=== PATIENT | female | born 1955 | race Caucasian/White ===

== ENCOUNTER 2024-01-20 21:10 | Inpatient (IN) | payer MEDICARE, OTHER, SELFPAY ==
--- NOTE | 2024-01-17 16:09 | PTCARENOTE ---
Patients 5/2 hgb 8.7, Dr. Gudino notified
[2024-01-20] VITALS (12 sets, daily range): BP systolic 99–126; BP diastolic 44–64; BMI 26.3
[2024-01-20] MEDS: NORMOSOL-R 1000 IV ×2 (14:11→20:48)
[2024-01-20 20:23] LABS: Hematocrit 29.9 % (37.0-47.0); Hemoglobin 10.1 g/dL (12.0-16.0)
--- NOTE | 2024-01-20 21:30 | PTCARENOTE ---
Pt transferred from PACU with left humerus fracture. Pt has swelling and bruising on left arm. Pt AAOX3, able to make needs known, VSS. Pt oriented to unit, call leong within reach. Neurovascular checks Q4. Will continue with current plan.
[2024-01-20] MEDS: LIPITOR 20 MG PO (21:52)
[2024-01-20] MEDS: ASPIRIN 325 MG PO (21:53)
[2024-01-20] MEDS: COLACE 100 MG PO (21:53)
[2024-01-20] MEDS: TYLENOL 650 MG PO (21:53)
[2024-01-20] MEDS: ANCEF 5 IV (23:12)
[2024-01-21] VITALS (7 sets, daily range): BP systolic 99–114; BP diastolic 49–65
[2024-01-21] MEDS: NORMOSOL-R 1000 IV (04:59)
[2024-01-21 06:34] LABS: Hematocrit 27.1 % (37.0-47.0); Hemoglobin 9.2 g/dL (12.0-16.0)
[2024-01-21 07:00] LABS: Blood Urea Nitrogen 26 mg/dl (7-17); Calcium 8.4 mg/dl (8.4-10.2); Carbon Dioxide 21 mmol/L (22-30); Chloride 107 mmol/L (98-107); Estimated Creatinine Clearance 66 ml/min; Glucose 108 mg/dl (70-99); Potassium 4.1 mmol/L (3.5-5.1); Sodium 136 mmol/L (135-145); eGFR > 60.00
--- NOTE | 2024-01-21 08:07 | W.PN.UPDATE ---
Update Note
Progress Note Update
Comfortable
VSS
L UE NVI
H/H acceptable
Will F/U with primary MD regarding anemia
For D/C to home today
F/U ~7-10 days
GGMD
[2024-01-21] MEDS: TYLENOL 650 MG PO ×2 (08:54→14:12)
[2024-01-21] MEDS: CARDIZEM 30 MG PO (08:55)
[2024-01-21] MEDS: COLACE 100 MG PO (08:55)
[2024-01-21] MEDS: ASPIRIN 325 MG PO (08:55)
[2024-01-21] MEDS: ANCEF 5 IV (09:19)
--- NOTE | 2024-01-21 11:08 | CM ---
photo lab manager reviewed patient's chart and met with patient and patient states that she lives in a one story home with one step to enter, patient is independent with adl's and ambulation, patient recently started using a cane after her fall. Per
patient she plans on staying with her sister at discharge, patient's sister lives [facility] [facility] [address]. Recommendation is for home care, options reviewed and patient has selected [facility], referral sent to
[facility].
[facility]
[phone]
[2024-01-21] MEDS: NORMOSOL-R IV (15:19)
--- NOTE | 2024-01-21 15:19 | PTCARENOTE ---
Addendum entered by Trudy Blakely RN 01/21/24 15:37:
Javi texted Dr. Clarke about patient's home medication not complete. He responded that it was explained in his note that patient should resume home medications, cardiezam and simvastatin. Patient states that she understood this.
Original Note:
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 Patient cleared for d/c. Instructions provided. Patient refusing to leave room because her friend is bringing in her bra.
== END 2024-01-21 15:52 | disposition home health service (06) | DRG 494 ==
LOC: 4 WEST ACU 21:10
PROVIDERS: ADMITTING PHYSICIAN Orthopaedic Surgery Hand Surgery; FAMILY PHYSICIAN Family Medicine
PROC: 30233N1 Transfusion of Nonautologous Red Blood Cells into Peripheral Vein, Percutaneous Approach (ICD-10-PCS; 2024-01-20)
PROC: 0PSG04Z Reposition Left Humeral Shaft with Internal Fixation Device, Open Approach (ICD-10-PCS; 2024-01-20)
DX: M81.0 Age-related osteoporosis without current pathological fracture (principal)
CPT/HCPCS: 73060; 76000; 80048; 85014; 85018; 86850; 86900; 86901; 86920; 93005; 97162; 97166; P9016

== ENCOUNTER → 2024-05-19 09:25 | Outpatient (REF) | payer MEDICARE, OTHER, SELFPAY | LOC: EMG 09:25 | PROVIDERS: ATTENDING PHYSICIAN Psychiatry & Neurology Neurology | DX: R20.0 Anesthesia of skin (principal) | CPT/HCPCS: 95886; 95910 ==